=== PATIENT | male | born 1970 | race Caucasian/White ===

== ENCOUNTER 2018-12-18 10:25 | Emergency (ER) | payer OTHER ==
[~2018-12-18] VITALS: Ht 182.9 cm; Wt 86.2 kg
[2018-12-18 10:25] VITALS: BP_SYST 116
[2018-12-18] MEDS ORDERED: levETIRAcetam 1,000 MG IV BAG 100 ML IV ONE (10:45)
[2018-12-18 11:12] LABS: BASOPHILS % (AUTO) 0.1 % (0.0-2.0); EOSINOPHILS % (AUTO) 0.2 % (0.0-4.0); HEMOGLOBIN 13.6 g/dL (14.0-18.0); LYMPHOCYTES # (AUTO) 0.5 K/uL (1.0-5.5); LYMPHOCYTES % (AUTO) 4.9 % (20.5-51.5); MEAN CORPUSCULAR HEMOGLOBIN 34 pg (27-31); MEAN CORPUSCULAR HGB CONC 34 % (32-36); MEAN CORPUSCULAR VOLUME 100 fL (79.0-98.0); MONOCYTES # (AUTO) 1.4 K/uL (0.0-1.0); MONOCYTES % (AUTO) 14.4 % (1.7-9.3); NEUTROPHILS # (AUTO) 7.5 K/uL (1.8-7.7); NEUTROPHILS % (AUTO) 80.4 % (40.0-70.0); PLATELET COUNT (AUTO) 84 K/uL (130-430); RED BLOOD CELL COUNT(AUTO) 4.02 MIL/uL (4.2-6.2); RED CELL DISTRIBUTION WIDTH 12.2 % (9.0-15.0); WHITE BLOOD COUNT (AUTO) 9.4 K/uL (4.8-10.8)
[2018-12-18 11:25] LABS: ANION GAP 13 (5-15); CALCIUM 8.7 mg/dL (8.4-11.0); CHLORIDE 89 mmol/L (98-107); CREATININE 0.76 mg/dL (0.55-1.30); GLUCOSE 115 mg/dL (70-99); POTASSIUM 3.5 mmol/L (3.5-5.1); SODIUM SERUM 127 mmol/L (136-145); UREA NITROGEN, BLOOD 7 mg/dL (8-21)
[2018-12-18 11:27] LABS: GFR AFRICAN AMERICAN 141 mL/min (>90)
[2018-12-18] MEDS ORDERED: NACL 0.9% 1,000 ML IV ONE (11:30)
[2018-12-18 11:33] LABS: ALANINE AMINOTRANSFERASE 35 U/L (12-78); ALBUMIN 3.3 g/dL (3.4-4.8); ASPARTATE AMINOTRANSFERASE 57 U/L (10-37); TOTAL BILIRUBIN 1.7 mg/dL (0.0-1.0)
[2018-12-18 11:37] LABS: ALCOHOL, BLOOD < 3 mg/dL (<10)
[2018-12-18 11:43] LABS: BILIRUBIN,URINE NEGATIVE (NEGATIVE); BLOOD, URINE NEGATIVE (NEGATIVE); CLARITY/URINE CLEAR (CLEAR); COLOR,URINE YELLOW (YELLOW); GLUCOSE,URINE NEGATIVE (NEGATIVE); KETONES,URINE TRACE (NEGATIVE); LEUKOCYTE ESTERASE ,URINE NEGATIVE (NEGATIVE); NITRITE, URINE NEGATIVE (NEGATIVE); PROTEIN URINE NEGATIVE (NEGATIVE); UROBILINOGEN,URINE 0.2 (0.2-1.0)
[2018-12-18 12:10] LABS: BARBITURATE, URINE NEGATIVE (NEG <=200); BENZODIAZEPINE, URINE NEGATIVE (NEG <=150); CANNABINOID, URINE NEGATIVE (NEG <=50); COCAINE, URINE NEGATIVE (NEG <=150); METHAMPHETAMINES SCREEN,URINE NEGATIVE (NEG <=500); OPIATE, URINE NEGATIVE (NEG <=100); PHENCYCLIDINE SCREEN,URINE NEGATIVE (NEG <=25); UR TRICYCLIC ANTIDEPRESSANTS NEGATIVE (NEG <=300); URINE AMPHETAMINE NEGATIVE (NEG <=500); URINE METHADONE NEGATIVE (NEG <=200); URINE OXYCODONE SCREEN NEGATIVE (NEG <=100); URINE PROPOXYPHENE SCREEN NEGATIVE (NEG <=300)
== END 2018-12-18 13:35 | disposition home or self-care (01) ==
LOC: SED 10:25
DX: S63.502A Unspecified sprain of left wrist, initial encounter (principal); S83.91XA Sprain of unspecified site of right knee, initial encounter; R56.9 Unspecified convulsions; E87.1 Hypo-osmolality and hyponatremia; R74.0 Nonspecific elevation of levels of transaminase and lactic acid dehydrogenase [LDH]; F10.99 Alcohol use, unspecified with unspecified alcohol-induced disorder; F17.210 Nicotine dependence, cigarettes, uncomplicated; Z71.6 Tobacco abuse counseling; X58.XXXA Exposure to other specified factors, initial encounter; Y93.89 Activity, other specified; Y92.89 Other specified places as the place of occurrence of the external cause; Y99.8 Other external cause status
CPT/HCPCS: 29125; 29505; 36415; 70450; 73110; 73564; 80053; 80307; 81003; 85025; 93005; 96365; 99284; G0482; J1953; J7030

== ENCOUNTER 2020-05-29 09:55 | Inpatient (IN) | payer MEDICAID, OTHER ==
[~2020-05-29] VITALS: Ht 182.9 cm; Wt 80.7 kg
[2020-05-29 10:15] VITALS: BP_SYST 156
[2020-05-29 11:06] LABS: BASOPHILS # (AUTO) 0.1 K/uL (0.0-0.2); BASOPHILS % (AUTO) 0.4 % (0.0-2.0); HEMATOCRIT 42.3 % (36-54); HEMOGLOBIN 14.4 g/dL (14.0-18.0); LYMPHOCYTES # (AUTO) 0.5 K/uL (1.0-5.5); LYMPHOCYTES % (AUTO) 3.3 % (20.5-51.5); MEAN CORPUSCULAR HEMOGLOBIN 34 pg (27-31); MEAN CORPUSCULAR HGB CONC 34 % (32-36); MEAN CORPUSCULAR VOLUME 101 fL (79.0-98.0); MONOCYTES # (AUTO) 1.6 K/uL (0.0-1.0); MONOCYTES % (AUTO) 10.8 % (1.7-9.3); NEUTROPHILS # (AUTO) 12.5 K/uL (1.8-7.7); PLATELET COUNT (AUTO) 107 K/uL (130-430); RED BLOOD CELL COUNT(AUTO) 4.18 MIL/uL (4.2-6.2); RED CELL DISTRIBUTION WIDTH 12.9 % (9.0-15.0); WHITE BLOOD COUNT (AUTO) 14.7 K/uL (4.8-10.8)
[2020-05-29 11:18] LABS: CALCIUM 9.6 mg/dL (8.4-11.0); CREATININE 0.77 mg/dL (0.55-1.30); POTASSIUM 3.9 mmol/L (3.5-5.1)
[2020-05-29 11:22] LABS: ALBUMIN 3.7 g/dL (3.4-4.8); TOTAL BILIRUBIN 2.1 mg/dL (0.0-1.0)
[2020-05-29 11:24] LABS: NEUTROPHILS % (AUTO) 85.5 % (40.0-70.0)
[2020-05-29] MEDS ORDERED: NACL 0.9% 1,000 ML IV ONE (11:45)
[2020-05-29] MEDS ORDERED: LORazepam 2 MG/ML VIAL IVP PRN (14:00)
[2020-05-29] MEDS ORDERED: LORazepam 2 MG/ML VIAL IVP ONE ×2 (14:30→17:30)
[2020-05-29] MEDS: NACL 0.9% 1,000 ML IV SCH ×2 (16:14→20:10)
[2020-05-29 19:00] VITALS: BP_SYST 159
[2020-05-29] MEDS: LORazepam 2 MG/ML VIAL IVP PRN (22:56)
[2020-05-30 01:07] VITALS: BP_SYST 154
[2020-05-30 01:25] LABS: BILIRUBIN,URINE NEGATIVE (NEGATIVE); BLOOD, URINE NEGATIVE (NEGATIVE); CLARITY/URINE CLEAR (CLEAR); COLOR,URINE YELLOW (YELLOW); GLUCOSE,URINE NEGATIVE (NEGATIVE); KETONES,URINE 1+ (NEGATIVE); LEUKOCYTE ESTERASE ,URINE NEGATIVE (NEGATIVE); NITRITE, URINE NEGATIVE (NEGATIVE); PROTEIN URINE TRACE (NEGATIVE); UROBILINOGEN,URINE 0.2 (0.2-1.0)
[2020-05-30] MEDS: LORazepam 2 MG/ML VIAL IVP PRN ×3 (05:23→21:06)
[2020-05-30] MEDS: NACL 0.9% 1,000 ML IV SCH ×2 (06:33→16:28)
[2020-05-30 08:00] VITALS: BP_SYST 163
[2020-05-30 08:19] LABS: BASOPHILS % (AUTO) 0.4 % (0.0-2.0); EOSINOPHILS % (AUTO) 0.1 % (0.0-4.0); HEMATOCRIT 35.5 % (36-54); HEMOGLOBIN 12.1 g/dL (14.0-18.0); LYMPHOCYTES # (AUTO) 0.6 K/uL (1.0-5.5); LYMPHOCYTES % (AUTO) 5.2 % (20.5-51.5); MEAN CORPUSCULAR HEMOGLOBIN 35 pg (27-31); MEAN CORPUSCULAR HGB CONC 34 % (32-36); MEAN CORPUSCULAR VOLUME 103 fL (79.0-98.0); MONOCYTES # (AUTO) 1.5 K/uL (0.0-1.0); MONOCYTES % (AUTO) 13.8 % (1.7-9.3); NEUTROPHILS # (AUTO) 8.6 K/uL (1.8-7.7); NEUTROPHILS % (AUTO) 80.5 % (40.0-70.0); PLATELET COUNT (AUTO) 90 K/uL (130-430); RED BLOOD CELL COUNT(AUTO) 3.46 MIL/uL (4.2-6.2); RED CELL DISTRIBUTION WIDTH 13.2 % (9.0-15.0); WHITE BLOOD COUNT (AUTO) 10.7 K/uL (4.8-10.8)
[2020-05-30 08:59] LABS: ALBUMIN 2.9 g/dL (3.4-4.8); CALCIUM 8.3 mg/dL (8.4-11.0); CREATININE 0.63 mg/dL (0.55-1.30); THYROID STIMULATING HORMONE 1.17 uIu/mL (0.34-4.82); TOTAL BILIRUBIN 1.3 mg/dL (0.0-1.0); URIC ACID 5.2 mg/dL (2.4-7.0)
[2020-05-30 10:27] LABS: POTASSIUM 2.9 mmol/L (3.5-5.1)
[2020-05-30 12:00] VITALS: BP_SYST 181
[2020-05-30] MEDS ORDERED: POTASSIUM CHLORIDE 20 MEQ/PKT PACKET PO ONE (13:30)
[2020-05-30 16:30] VITALS: BP_SYST 161
[2020-05-30] MEDS ORDERED: CARVEDILOL 6.25 MG TABLET (COREG) PO ONE (19:00)
[2020-05-30] MEDS ORDERED: KCL 20 mEq in 100 mL (PREMIX) 100 ML IV ONE (19:15)
[2020-05-30] MEDS: levETIRAcetam 500 MG TABLET PO SCH (21:06)
[2020-05-31 06:51] LABS: BASOPHILS % (AUTO) 0.2 % (0.0-2.0); EOSINOPHILS % (AUTO) 0.1 % (0.0-4.0); HEMATOCRIT 37.8 % (36-54); HEMOGLOBIN 12.8 g/dL (14.0-18.0); LYMPHOCYTES # (AUTO) 0.7 K/uL (1.0-5.5); LYMPHOCYTES % (AUTO) 6.1 % (20.5-51.5); MEAN CORPUSCULAR HEMOGLOBIN 35 pg (27-31); MEAN CORPUSCULAR HGB CONC 34 % (32-36); MEAN CORPUSCULAR VOLUME 104 fL (79.0-98.0); MONOCYTES # (AUTO) 1.7 K/uL (0.0-1.0); MONOCYTES % (AUTO) 15.5 % (1.7-9.3); NEUTROPHILS # (AUTO) 8.6 K/uL (1.8-7.7); NEUTROPHILS % (AUTO) 78.1 % (40.0-70.0); PLATELET COUNT (AUTO) 111 K/uL (130-430); RED BLOOD CELL COUNT(AUTO) 3.65 MIL/uL (4.2-6.2); RED CELL DISTRIBUTION WIDTH 12.8 % (9.0-15.0)
[2020-05-31 06:56] LABS: INR 0.9 (0.80-1.20); PROTHROMBIN TIME 9.2 SECS (9.5-12.5)
[2020-05-31] MEDS: NACL 0.9% 1,000 ML IV SCH ×2 (07:31→22:18)
[2020-05-31 08:00] VITALS: BP_SYST 165
[2020-05-31] MEDS ORDERED: CARVEDILOL 6.25 MG TABLET (COREG) PO SCH (09:00)
[2020-05-31] MEDS ORDERED: LORazepam 2 MG/ML VIAL IM PRN (09:45)
[2020-05-31] MEDS ORDERED: LORazepam 2 MG/ML VIAL IVP PRN (09:45)
[2020-05-31] MEDS: levETIRAcetam 500 MG TABLET PO SCH ×2 (09:51→20:53)
[2020-05-31 10:36] LABS: CALCIUM 8.4 mg/dL (8.4-11.0); CREATININE 0.59 mg/dL (0.55-1.30)
[2020-05-31 10:37] LABS: PHOSPHORUS 2.3 mg/dL (2.7-4.5)
[2020-05-31 12:24] VITALS: BP_SYST 169
[2020-05-31] MEDS ORDERED: NA PHOS 30 MM in NS 250 ML IV ONE (13:00)
[2020-05-31] MEDS: hydrALAZINE HCL 20 MG/ML VIAL IVP PRN ×2 (15:31→22:19)
[2020-05-31 15:39] VITALS: BP_SYST 179
[2020-05-31] MEDS: KCL 30mEq in D5/0.45NS 1000 mL 1,000 ML IV SCH (15:45)
[2020-05-31 20:00] VITALS: BP_SYST 184
[2020-05-31] MEDS: CARVEDILOL 12.5 MG TABLET (COREG) PO SCH (20:54)
[2020-06-01] VITALS (7 sets, daily range): BP systolic 131–183
[2020-06-01] MEDS: KCL 30mEq in D5/0.45NS 1000 mL 1,000 ML IV SCH ×3 (02:05→21:56)
[2020-06-01] MEDS: hydrALAZINE HCL 20 MG/ML VIAL IVP PRN ×3 (04:39→20:58)
[2020-06-01] MEDS: NACL 0.9% 1,000 ML IV SCH ×2 (05:20→21:55)
[2020-06-01 07:30] LABS: CALCIUM 8.4 mg/dL (8.4-11.0); CREATININE 0.52 mg/dL (0.55-1.30); PHOSPHORUS 2.1 mg/dL (2.7-4.5)
[2020-06-01 07:40] LABS: POTASSIUM 2.7 mmol/L (3.5-5.1)
[2020-06-01] MEDS: levETIRAcetam 500 MG TABLET PO SCH ×2 (08:46→21:54)
[2020-06-01] MEDS: CARVEDILOL 12.5 MG TABLET (COREG) PO SCH ×2 (08:47→21:54)
[2020-06-01] MEDS ORDERED: POTASSIUM CHLORIDE 40 MEQ, LIDOCAINE JECT 2% PF 100 MG 50 MG in NS 250 ML IV ONE (09:45)
[2020-06-01] MEDS ORDERED: NA PHOS 30 MM in NS 250 ML IV ONE (17:45)
[2020-06-02] VITALS (7 sets, daily range): BP systolic 146–201
[2020-06-02 07:38] LABS: CALCIUM 8.8 mg/dL (8.4-11.0); CREATININE 0.66 mg/dL (0.55-1.30); PHOSPHORUS 2.9 mg/dL (2.7-4.5); POTASSIUM 3.3 mmol/L (3.5-5.1)
[2020-06-02] MEDS: levETIRAcetam 500 MG TABLET PO SCH ×2 (08:38→21:57)
[2020-06-02] MEDS: CARVEDILOL 12.5 MG TABLET (COREG) PO SCH (08:39)
[2020-06-02] MEDS: KCL 30mEq in D5/0.45NS 1000 mL 1,000 ML IV SCH ×2 (11:28→20:35)
[2020-06-02] MEDS: CARVEDILOL 25 MG TABLET (COREG) PO SCH (21:57)
[2020-06-02] MEDS: hydrALAZINE HCL 20 MG/ML VIAL IVP PRN (21:58)
[2020-06-03 00:32] VITALS: BP_SYST 150; BP_SYST 151
[2020-06-03] MEDS: KCL 30mEq in D5/0.45NS 1000 mL 1,000 ML IV SCH (05:21)
[2020-06-03] MEDS: CARVEDILOL 25 MG TABLET (COREG) PO SCH (09:11)
[2020-06-03] MEDS: levETIRAcetam 500 MG TABLET PO SCH (09:11)
[2020-06-03] MEDS: hydrALAZINE HCL 20 MG/ML VIAL IVP PRN (12:08)
[2020-06-03] MEDS ORDERED: LOSARTAN POTASSIUM 50 MG TABLET (COZAAR) PO ONE (15:45)
[2020-06-03] MEDS ORDERED: hydrALAZINE HCL 20 MG/ML VIAL IVP ONE (17:15)
[2020-06-03 18:22] VITALS: BP_SYST 160
[2020-06-04] MEDS ORDERED: LOSARTAN POTASSIUM 50 MG TABLET (COZAAR) PO SCH (09:00)
== END 2020-06-03 18:45 | disposition home or self-care (01) | DRG 342 ==
LOC: SED 09:55 → STU 13:59 → SMU 06-02 20:40
PROVIDERS: ADMIT Internal Medicine; ATTEND Internal Medicine
PROC: 2W39X1Z Immobilization of Left Upper Extremity using Splint (ICD-10-PCS; principal; 2020-05-29)
DX: S52.502A Unspecified fracture of the lower end of left radius, initial encounter for closed fracture (principal); G40.401 Other generalized epilepsy and epileptic syndromes, not intractable, with status epilepticus; E87.1 Hypo-osmolality and hyponatremia; E43 Unspecified severe protein-calorie malnutrition; E87.6 Hypokalemia; D69.59 Other secondary thrombocytopenia; K76.9 Liver disease, unspecified; F32.9 Major depressive disorder, single episode, unspecified; F17.210 Nicotine dependence, cigarettes, uncomplicated; I10 Essential (primary) hypertension; F41.1 Generalized anxiety disorder; T42.76XA Underdosing of unspecified antiepileptic and sedative-hypnotic drugs, initial encounter; W18.30XA Fall on same level, unspecified, initial encounter; Y93.89 Activity, other specified; Y99.8 Other external cause status; Y92.89 Other specified places as the place of occurrence of the external cause; Z87.828 Personal history of other (healed) physical injury and trauma; Z68.24 Body mass index [BMI] 24.0-24.9, adult; Z88.1 Allergy status to other antibiotic agents; Z88.0 Allergy status to penicillin
CPT/HCPCS: 36415; 70450-TC; 71045; 80048; 80053; 81003; 82533; 83735-TC; 83930-TC; 83935-TC; 84100-TC; 84302-TC; 84443-TC; 84550-TC; 85025; 85610-TC; 85730-TC; 96361; 96374; 96376; 99285; G0378; J0360; J2060; J3480; J7030; J7050

== ENCOUNTER 2020-06-29 12:02 | Emergency (ER) | payer MEDICAID ==
[~2020-06-29] VITALS: Ht 182.9 cm; Wt 77.1 kg
[2020-06-29 12:02] VITALS: BP_SYST 153
--- NOTE | 2020-06-29 12:02 | NUR ---
TATY BACK TO BED #4 AND TRIAGED, REPORT GIVEN TO KATELYN
--- NOTE | 2020-06-29 12:14 | NUR ---
Pt came to ER requesting medication refill because he has been unable to get in contact with his primary Dr. Pt AO4, no c/o, resting in [facility]
--- NOTE | 2020-06-29 12:15 | NUR ---
ER at bedside examining patient.
[2020-06-29 13:40] VITALS: BP_SYST 153
--- NOTE | 2020-06-29 13:41 | NUR ---
Patient given written and verbal discharge instructions and verbalizes understanding. ER MD discussed with patient the results and treatment provided. Patient in stable condition. ID arm band removed. Rx of Keppra, Losartan, and Hydralazine given. Patient educated on pain management and to follow up with PMD. Pain Scale 0. Opportunity for questions provided and answered. Medication side effect fact sheet provided.
== END 2020-06-29 13:41 | disposition home or self-care (01) ==
LOC: SED 12:02
DX: S52.592A Other fractures of lower end of left radius, initial encounter for closed fracture (principal); Z76.0 Encounter for issue of repeat prescription; X58.XXXA Exposure to other specified factors, initial encounter; Y93.89 Activity, other specified; Y92.89 Other specified places as the place of occurrence of the external cause; Y99.8 Other external cause status
CPT/HCPCS: 99283

== ENCOUNTER 2022-02-05 15:02 | Emergency (ER) | payer MEDICAID ==
[~2022-02-05] VITALS: Ht 182.9 cm; Wt 73.9 kg
[2022-02-05 15:19] VITALS: BP_SYST 153
[2022-02-05] MEDS ORDERED: MORPHINE 4 MG INJ. 4 MG/ML VIAL IVP ONE (15:45)
[2022-02-05 17:00] LABS: PLATELET COUNT (AUTO) 189 K/uL (130-430); WHITE BLOOD COUNT (AUTO) 6.3 K/uL (4.8-10.8)
[2022-02-05 17:02] LABS: CALCIUM 9.1 mg/dL (8.4-11.0); CREATININE 0.54 mg/dL (0.55-1.30); POTASSIUM 4.4 mmol/L (3.5-5.1)
[2022-02-05 17:08] LABS: ALBUMIN 3.1 g/dL (3.4-4.8); TOTAL BILIRUBIN 0.1 mg/dL (0.0-1.0)
[2022-02-05 17:10] LABS: BASOPHILS # (AUTO) 0.1 K/uL (0.0-0.2); BASOPHILS % (AUTO) 1.7 % (0.0-2.0); EOSINOPHILS # (AUTO) 0.2 K/uL (0.0-0.4); EOSINOPHILS % (AUTO) 3.4 % (0.0-4.0); HEMATOCRIT 32.1 % (36-54); HEMOGLOBIN 10.7 g/dL (14.0-18.0); LYMPHOCYTES # (AUTO) 1.2 K/uL (1.0-5.5); LYMPHOCYTES % (AUTO) 19.5 % (20.5-51.5); MEAN CORPUSCULAR HEMOGLOBIN 31 pg (27-31); MEAN CORPUSCULAR HGB CONC 33 % (32-36); MEAN CORPUSCULAR VOLUME 92 fL (79.0-98.0); MONOCYTES # (AUTO) 0.8 K/uL (0.0-1.0); MONOCYTES % (AUTO) 11.9 % (1.7-9.3); NEUTROPHILS % (AUTO) 63.5 % (40.0-70.0); RED BLOOD CELL COUNT(AUTO) 3.47 MIL/uL (4.2-6.2)
[2022-02-05] MEDS ORDERED: NACL 0.9% 1,000 ML IV ONE ×2 (17:45→18:00)
[2022-02-05] MEDS ORDERED: CEFAZOLIN 1 GM IVPB PREMIX 50 ML IV ONE (17:45)
[2022-02-05] MEDS ORDERED: SULF1TAB48 PO (17:46)
[2022-02-05] MEDS ORDERED: IBUP-1969 PO (17:51)
[2022-02-05] MEDS ORDERED: OXYC-128 PO (17:51)
[2022-02-05] MEDS ORDERED: MORPHINE 4 MG INJ. 4 MG/ML VIAL ONE (19:15)
[2022-02-05 19:44] VITALS: BP_SYST 134
== END 2022-02-05 19:44 | disposition home or self-care (01) ==
LOC: SED 15:02
DX: E87.1 Hypo-osmolality and hyponatremia (principal); L03.115 Cellulitis of right lower limb; E87.8 Other disorders of electrolyte and fluid balance, not elsewhere classified; R56.9 Unspecified convulsions; Z79.2 Long term (current) use of antibiotics
CPT/HCPCS: 36415; 73610; 80053; 83605; 85025; 87040; 93970; 96365; 96375; 99285; J0690; J2270; 96374; 99284